=== PATIENT | male | born 1960 | race Caucasian/White ===

== ENCOUNTER 2018-09-16 07:41 | Day surgery (SDC) | payer BC ==
[2018-09-16] MEDS ORDERED: Propofol 200 MG/20 ML SDV ONE (08:12)
[2018-09-16] MEDS ORDERED: fentaNYL 100 MCG/2 ML SDV ONE (08:12)
[2018-09-16] MEDS ORDERED: Midazolam 1 MG/ML 2 ML SDV ONE (08:12)
[2018-09-16] MEDS ORDERED: Lactated Ringers 1,000 ML IV SCH (08:15)
--- NOTE | 2018-09-17 07:30 | OR ---
DATE OF PROCEDURE: 09/16/2018 PREOPERATIVE DIAGNOSIS: Strong family history of colon cancer. Mother of colon cancer. POSTOPERATIVE DIAGNOSES: Diverticulosis, strong family history of colon cancer, mother of colon cancer. PROCEDURE: Colonoscopy to the cecum. SURGEON: Mango Brewster MD ANESTHESIA: IV anesthesia with monitored anesthesia care. INDICATION: This 58-year-old white male was referred for a colonoscopy. He has a strong family history of colon cancer in that his mother of colon cancer. He has never had a colonoscopic exam. I counseled him for the procedure, including risks and alternatives, and he gave his informed consent to proceed. DESCRIPTION OF PROCEDURE: The patient was placed in the left lateral decubitus position. IV anesthesia was administered by the Anesthesia Service. Time-out was held. A rectal exam was performed, which was unremarkable. The flexible video Olympus colonoscope was introduced through his anus, up his rectum, out his colon, all the way to the cecum. Once the cecum was reached, the scope was slowly withdrawn, examining the mucosa throughout. No mucosal abnormalities were noted until we reached the left side. Here, we saw very few scattered diverticula. There was no bleeding or inflammation associated with any of them. The scope was retroflexed in the rectum with the distal rectum appearing unremarkable. The scope was straightened and removed. He tolerated the procedure well. Mango Brewster MD /[id number]
== END 2018-09-16 10:21 | disposition home or self-care (01) ==
LOC: JP.SDS 07:41
PROVIDERS: ATTEND Surgery
DX: Z12.11 Encounter for screening for malignant neoplasm of colon (principal); K57.30 Diverticulosis of large intestine without perforation or abscess without bleeding; Z80.0 Family history of malignant neoplasm of digestive organs
CPT/HCPCS: J2250; J2704; J3010; J7120

== ENCOUNTER 2024-08-28 08:00 | Day surgery (SDC) | payer MEDICARE, BC ==
[2024-08-28] MEDS ORDERED: Midazolam 1 MG/ML 2 ML SDV ONE (08:16)
[2024-08-28] MEDS ORDERED: Propofol 200 MG/20 ML SDV ONE (08:16)
[2024-08-28] MEDS ORDERED: fentaNYL 50 MCG/ML SDV ONE (08:16)
[2024-08-28] MEDS: Lactated Ringers 1,000 ML IV SCH (08:53)
== END 2024-08-28 10:42 | disposition home or self-care (01) ==
LOC: JP.SDS 08:00
PROVIDERS: ATTEND Surgery
DX: Z12.11 Encounter for screening for malignant neoplasm of colon (principal); I10 Essential (primary) hypertension
CPT/HCPCS: 00811; 45380; J2250; J2704; J3010; J7120